=== PATIENT | female | born 1990 | race Caucasian/White ===

== ENCOUNTER 2016-08-15 05:15 | Emergency (ER) | payer MEDICAID | END 2016-08-15 06:29 | disposition home or self-care (01) | LOC: D.ER 05:15 | DX: L02.415 Cutaneous abscess of right lower limb (principal); I10 Essential (primary) hypertension ==

== ENCOUNTER 2018-01-20 11:38 | Emergency (ER) | payer MEDICAID ==
[~2018-01-20] VITALS: Ht 175.3 cm; Wt 113.6 kg
[2018-01-20 11:45] VITALS: BP 116/67; Ht 175.3 cm; Wt 113.6 kg
[2018-01-20] MEDS ORDERED: DOXYCYCLINE HY100 M2 PO (11:47)
[2018-01-20] MEDS ORDERED: ORAPRED ODT10 MG/TAB PO (11:47)
== END 2018-01-20 12:19 | disposition left against medical advice (07) ==
LOC: D.ER 11:38
DX: H57.13 Ocular pain, bilateral (principal); F17.200 Nicotine dependence, unspecified, uncomplicated

== ENCOUNTER 2018-03-27 01:13 | Emergency (ER) | payer MEDICAID ==
[~2018-03-27] VITALS: Ht 175.3 cm; Wt 113.6 kg
[~2018-03-27 01:13] MED LIST: DOXYCYCLINE HY100 M2 PO; ORAPRED ODT10 MG/TAB PO
[2018-03-27 01:16] VITALS: Ht 175.3 cm; Wt 113.6 kg
[2018-03-27 03:06] LABS: APPEARANCE HAZY (CLEAR); BACTERIA NONE SEEN /hpf (NONE SEEN); BILIRUBIN NEGATIVE (NEGATIVE); COLOR YELLOW (YELLOW); EPITHELIAL CELLS 0-5 /hpf (0-5); GLUCOSE NEGATIVE (NEGATIVE); KETONE NEGATIVE (NEGATIVE); NITRITE NEGATIVE (NEGATIVE); PROTEIN NEGATIVE (NEGATIVE); RED CELLS - URINE >50 /hpf (0-5); UROBILINOGEN NORMAL (NORMAL)
[2018-03-27] MEDS ORDERED: ZOFRAN8 MG PO (03:11)
[2018-03-27] MEDS ORDERED: TORADOL10 MG PO (03:11)
[2018-03-27] MEDS ORDERED: FLOMAX0.4 MG PO (03:11)
[2018-03-27 03:26] VITALS: BP 155/88
== END 2018-03-27 03:27 | disposition home or self-care (01) ==
LOC: D.ER 01:13
PROVIDERS: Family Medicine
DX: N20.0 Calculus of kidney (principal); I10 Essential (primary) hypertension; F17.200 Nicotine dependence, unspecified, uncomplicated

== ENCOUNTER 2018-04-22 17:47 | Emergency (ER) | payer MEDICAID ==
[~2018-04-22] VITALS: Ht 175.3 cm; Wt 113.6 kg
[~2018-04-22 17:47] MED LIST changes: +FLOMAX0.4 MG PO; +TORADOL10 MG PO; +ZOFRAN8 MG PO
[2018-04-22 18:02] VITALS: Ht 175.3 cm; Wt 113.6 kg
[2018-04-22] MEDS ORDERED: TOPROL XL25 MG PO (18:08)
[2018-04-22 20:53] LABS: ALBUMIN 3.7 g/dL (3.4-5.0); ANION GAP 10.8 mmol/L (8-16); BILIRUBIN - TOTAL 0.13 mg/dL (0.2-1.3); CALCIUM 8.5 mg/dL (8.5-10.1); CARBON DIOXIDE 27.3 mmol/L (21.0-32.0); POTASSIUM - SERUM 4.1 mmol/L (3.5-5.1); PROTEIN - SERUM 7.5 g/dL (6.4-8.2)
[2018-04-22 21:06] LABS: BASOPHILS 0.3 % (0-2); EOSINOPHILS 1.4 % (0-7); HEMATOCRIT 40.3 % (36.0-48.0); HEMOGLOBIN 13.2 g/dL (12-16); IMMATURE GRANULOCYTES 0.2 % (0-5); LYMPHOCYTES 23.7 % (15-50); MCH 27.6 pg (26.0-34.0); MCHC 32.8 g/dL (31.0-37.0); MCV 84.3 fL (80.0-100.0); MEAN PLATELET VOLUME 10.4 fL (7.4-10.4); MONOCYTES 10.7 % (2-11); NEUTROPHILS 63.7 % (40-80); PLATELET COUNT 224 10x3/uL (130-400); RBC 4.78 10x6/uL (4.00-5.40); RDW 14.1 % (11.5-14.5); WBC 10.4 10x3/uL (4.8-10.8)
[2018-04-22 21:26] LABS: APPEARANCE CLEAR (CLEAR); BILIRUBIN NEGATIVE (NEGATIVE); COLOR YELLOW (YELLOW); GLUCOSE NEGATIVE (NEGATIVE); KETONE NEGATIVE (NEGATIVE); NITRITE NEGATIVE (NEGATIVE); PROTEIN NEGATIVE (NEGATIVE); UROBILINOGEN NORMAL (NORMAL)
[2018-04-22 21:28] LABS: WHITE CELLS - URINE 0-5 /hpf (0-5)
[2018-04-22 21:29] LABS: BACTERIA MODERATE /hpf (NONE SEEN); EPITHELIAL CELLS 0-5 /hpf (0-5)
[2018-04-22] MEDS ORDERED: ZOFRAN ODT4 MG/UDTAB PO (23:12)
[2018-04-22] MEDS ORDERED: NORCO 7.5/325 T1 TA1 PO (23:12)
[2018-04-22 23:34] VITALS: BP 132/78
== END 2018-04-22 23:34 | disposition home or self-care (01) ==
LOC: D.ER 17:47
PROVIDERS: Family Medicine
DX: N20.1 Calculus of ureter (principal); Q85.1 Tuberous sclerosis; F17.200 Nicotine dependence, unspecified, uncomplicated; I10 Essential (primary) hypertension

== ENCOUNTER 2018-04-28 23:24 | Emergency (ER) | payer MEDICAID ==
[~2018-04-28] VITALS: Ht 175.3 cm; Wt 113.6 kg
[~2018-04-28 23:24] MED LIST changes: +NORCO 7.5/325 T1 TA1 PO; +TOPROL XL25 MG PO; +ZOFRAN ODT4 MG/UDTAB PO
[2018-04-28 23:28] VITALS: Ht 175.3 cm; Wt 113.6 kg
[2018-04-28 23:57] LABS: APPEARANCE CLEAR (CLEAR); BILIRUBIN NEGATIVE (NEGATIVE); COLOR YELLOW (YELLOW); GLUCOSE NEGATIVE (NEGATIVE); KETONE NEGATIVE (NEGATIVE); NITRITE NEGATIVE (NEGATIVE); PROTEIN NEGATIVE (NEGATIVE); UROBILINOGEN NORMAL (NORMAL)
[2018-04-28 23:59] LABS: HEMATOCRIT 42.9 % (36.0-48.0); LYMPHOCYTES 33.7 % (15-50); MCHC 32.6 g/dL (31.0-37.0); MCV 82.7 fL (80.0-100.0); MEAN PLATELET VOLUME 10.3 fL (7.4-10.4); NEUTROPHILS 57.7 % (40-80); PLATELET COUNT 214 10x3/uL (130-400); RBC 5.19 10x6/uL (4.00-5.40); RDW 13.6 % (11.5-14.5)
[2018-04-29 00:01] LABS: HCG SERUM NEGATIVE (NEGATIVE)
[2018-04-29 00:04] LABS: ALKALINE PHOSPHATASE 85 U/L (46-116); ALT (SGPT) 24 U/L (10-68); BILIRUBIN - TOTAL 0.26 mg/dL (0.2-1.3); CALC OSMOLALITY 283 mosm/kg (275-300); CALCIUM 9.1 mg/dL (8.5-10.1); CARBON DIOXIDE 28.7 mmol/L (21.0-32.0); CHLORIDE - SERUM 103 mmol/L (98-107); GLUCOSE 105 mg/dL (74-106); POTASSIUM - SERUM 4.2 mmol/L (3.5-5.1); PROTEIN - SERUM 8.2 g/dL (6.4-8.2); SODIUM 141 mmol/L (136-145); UREA NITROGEN 20 mg/dL (7-18); eGFR NON AFRICAN AMERICAN 69 mL/min (90-120)
[2018-04-29 00:15] LABS: CKMB 0.4 U/L (0.0-3.6); CREATINE KINASE 71 UL (21-215)
[2018-04-29 00:23] LABS: TROPONIN-I < 0.017 ng/mL (0.000-0.060)
[2018-04-29] MEDS ORDERED: NAPROSYN500 MG PO (00:57)
[2018-04-29] MEDS ORDERED: ZPAK PO (00:57)
[2018-04-29 01:19] VITALS: BP 137/90
== END 2018-04-29 01:19 | disposition home or self-care (01) ==
LOC: D.ER 23:24
PROVIDERS: Family Medicine
DX: M94.0 Chondrocostal junction syndrome [Tietze] (principal); J40 Bronchitis, not specified as acute or chronic; I10 Essential (primary) hypertension; F17.200 Nicotine dependence, unspecified, uncomplicated

== ENCOUNTER 2018-05-26 05:27 | Outpatient (CLI) | payer MEDICAID ==
[~2018-05-26] VITALS: Ht 175.3 cm; Wt 113.4 kg
[~2018-05-26 05:27] MED LIST changes: +AMOXICILLIN500 M1 PO; +GUAIFENESI100 MG/5 M PO; +HYDROCHLOROTH12.5 M1 PO; +NAPROSYN500 MG PO; +ZPAK PO
[2018-05-26 05:46] LABS: HEMATOCRIT 42.7 % (36.0-48.0); HEMOGLOBIN 14.5 g/dL (12-16); MCH 27.5 pg (26.0-34.0); MEAN PLATELET VOLUME 10.2 fL (7.4-10.4); RBC 5.27 10x6/uL (4.00-5.40); WBC 9.2 10x3/uL (4.8-10.8)
[2018-05-26] MEDS ORDERED: NORVASC10 MG PO (06:29)
[2018-05-26 06:34] VITALS: BP 144/98; Ht 175.3 cm; Wt 113.4 kg
[2018-05-26 06:34] LABS: HCG SERUM NEGATIVE (NEGATIVE)
== END 2018-05-26 09:00 | disposition home or self-care (01) ==
LOC: D.OPS 05:27 → D.PAN 07:55 → D.OPS 08:00 → D.PAN 08:00 → EDSTATUS 08:00 → D.OPS 09:00
PROVIDERS: Anesthesiology; Urology
DX: N20.1 Calculus of ureter (principal); Z53.9 Procedure and treatment not carried out, unspecified reason; Z01.812 Encounter for preprocedural laboratory examination

== ENCOUNTER 2018-05-29 11:48 | Emergency (ER) | payer MEDICAID ==
[~2018-05-29] VITALS: Ht 175.3 cm; Wt 113.6 kg
[~2018-05-29 11:48] MED LIST changes: +NORVASC10 MG PO
[2018-05-29 11:51] VITALS: Ht 175.3 cm; Wt 113.6 kg
[2018-05-29 12:13] LABS: BASOPHILS 0.3 % (0-2); EOSINOPHILS 1.1 % (0-7); HEMATOCRIT 43.7 % (36.0-48.0); HEMOGLOBIN 14.6 g/dL (12-16); IMMATURE GRANULOCYTES 0.3 % (0-5); LYMPHOCYTES 26.4 % (15-50); MCH 27.5 pg (26.0-34.0); MCHC 33.4 g/dL (31.0-37.0); MCV 82.5 fL (80.0-100.0); MEAN PLATELET VOLUME 10.1 fL (7.4-10.4); MONOCYTES 5.4 % (2-11); NEUTROPHILS 66.5 % (40-80); PLATELET COUNT 272 10x3/uL (130-400); RDW 14.1 % (11.5-14.5); WBC 11.4 10x3/uL (4.8-10.8)
[2018-05-29 12:28] LABS: ALKALINE PHOSPHATASE 77 U/L (46-116); BILIRUBIN - TOTAL 0.17 mg/dL (0.2-1.3); PROTEIN - SERUM 8.3 g/dL (6.4-8.2); SODIUM 139 mmol/L (136-145)
[2018-05-29 12:37] LABS: HCG SERUM NEGATIVE (NEGATIVE)
[2018-05-29 12:39] LABS: ALBUMIN 3.9 g/dL (3.4-5.0); ALT (SGPT) 24 U/L (10-68); AMYLASE - SERUM 33 U/L (25-115); CALCIUM 8.9 mg/dL (8.5-10.1); CHLORIDE - SERUM 103 mmol/L (98-107); CREATININE - SERUM 0.8 mg/dL (0.6-1.3); LIPASE 121 U/L (73-393); POTASSIUM - SERUM 3.4 mmol/L (3.5-5.1); UREA NITROGEN 8 mg/dL (7-18); eGFR NON AFRICAN AMERICAN 90 mL/min (90-120)
[2018-05-29 12:45] LABS: CALC OSMOLALITY 275 mosm/kg (275-300); GLUCOSE 105 mg/dL (74-106)
[2018-05-29 13:42] LABS: APPEARANCE CLOUDY (CLEAR); BILIRUBIN NEGATIVE (NEGATIVE); COLOR RED (YELLOW); GLUCOSE NEGATIVE (NEGATIVE); KETONE NEGATIVE (NEGATIVE); NITRITE NEGATIVE (NEGATIVE); PROTEIN NEGATIVE (NEGATIVE); UROBILINOGEN NORMAL (NORMAL); WHITE CELLS - URINE OCC /hpf (0-5)
[2018-05-29 13:43] LABS: EPITHELIAL CELLS 0-5 /hpf (0-5); RED CELLS - URINE 25-50 /hpf (0-5); YEAST OCC /hpf (NONE SEEN)
[2018-05-29] MEDS ORDERED: NORCO 7.5/325 T1 TA1 PO (16:16)
[2018-05-29] MEDS ORDERED: ZOFRAN ODT4 MG/UDTAB PO (16:17)
[2018-05-29] MEDS ORDERED: FLOMAX0.4 MG PO (16:17)
[2018-05-29 16:30] VITALS: BP 131/83
== END 2018-05-29 16:31 | disposition home or self-care (01) ==
LOC: D.ER 11:48
PROVIDERS: Family Medicine
DX: N23 Unspecified renal colic (principal); N13.2 Hydronephrosis with renal and ureteral calculous obstruction; R31.9 Hematuria, unspecified; I10 Essential (primary) hypertension; G40.909 Epilepsy, unspecified, not intractable, without status epilepticus

== ENCOUNTER 2018-06-14 16:39 | Emergency (ER) | payer MEDICAID ==
[~2018-06-14] VITALS: Ht 175.3 cm; Wt 127.3 kg
[2018-06-14 16:53] VITALS: Ht 175.3 cm; Wt 127.3 kg
[2018-06-14 17:22] LABS: BASOPHILS 0.2 % (0-2); EOSINOPHILS 0.6 % (0-7); HEMOGLOBIN 14.4 g/dL (12-16); IMMATURE GRANULOCYTES 0.2 % (0-5); LYMPHOCYTES 19.4 % (15-50); MCH 27.5 pg (26.0-34.0); MCHC 33.5 g/dL (31.0-37.0); MCV 82.2 fL (80.0-100.0); MEAN PLATELET VOLUME 10.2 fL (7.4-10.4); MONOCYTES 6.4 % (2-11); NEUTROPHILS 73.2 % (40-80); PLATELET COUNT 268 10x3/uL (130-400); RBC 5.23 10x6/uL (4.00-5.40); RDW 14.1 % (11.5-14.5); WBC 13.2 10x3/uL (4.8-10.8)
[2018-06-14 18:06] LABS: APPEARANCE HAZY (CLEAR); COLOR DK YELLOW (YELLOW)
[2018-06-14 18:07] LABS: BILIRUBIN NEGATIVE (NEGATIVE); GLUCOSE NEGATIVE (NEGATIVE); KETONE NEGATIVE (NEGATIVE); NITRITE POSITIVE (NEGATIVE); PROTEIN 1+ mg/dL (NEGATIVE); SPECIFIC GRAVITY 1.015 (1.005-1.020); UROBILINOGEN NORMAL (NORMAL)
[2018-06-14 18:10] LABS: RED CELLS - URINE >50 /hpf (0-5)
[2018-06-14 18:11] LABS: BACTERIA FEW /hpf (NONE SEEN); EPITHELIAL CELLS 0-5 /hpf (0-5)
[2018-06-14 18:33] LABS: ANION GAP 19.5 mmol/L (8-16); BILIRUBIN - TOTAL 0.26 mg/dL (0.2-1.3); CALCIUM 9.1 mg/dL (8.5-10.1); POTASSIUM - SERUM 3.5 mmol/L (3.5-5.1); PROTEIN - SERUM 8.4 g/dL (6.4-8.2)
[2018-06-14 20:42] VITALS: BP 137/85
== END 2018-06-14 20:44 | disposition home or self-care (01) ==
LOC: D.ER 16:39
PROVIDERS: Family Medicine
DX: G89.18 Other acute postprocedural pain (principal)

== ENCOUNTER 2019-01-01 21:41 | Emergency (ER) | payer MEDICAID ==
[~2019-01-01] VITALS: Ht 175.3 cm; Wt 113.6 kg
[2019-01-01 21:58] VITALS: Ht 175.3 cm; Wt 113.6 kg
[2019-01-01] MEDS ORDERED: TORADOL10 MG PO (22:15)
[2019-01-01] MEDS ORDERED: CLEOCIN HCL300 MG PO (22:15)
[2019-01-01 22:58] VITALS: BP 138/71
== END 2019-01-01 22:58 | disposition home or self-care (01) ==
LOC: D.ER 21:41
DX: K08.89 Other specified disorders of teeth and supporting structures (principal); K02.9 Dental caries, unspecified

== ENCOUNTER 2019-02-02 09:42 | Emergency (ER) | payer MEDICAID ==
[~2019-02-02] VITALS: Ht 175.3 cm; Wt 108.9 kg
[~2019-02-02 09:42] MED LIST changes: +CLEOCIN HCL300 MG PO
[2019-02-02 09:53] VITALS: BP 154/74; Ht 175.3 cm; Wt 108.9 kg
== END 2019-02-02 11:25 | disposition left against medical advice (07) ==
LOC: D.ER 09:42
DX: G89.18 Other acute postprocedural pain (principal)

== ENCOUNTER 2020-03-12 01:26 | Emergency (ER) | payer SELFPAY ==
[~2020-03-12] VITALS: Ht 175.3 cm; Wt 90.9 kg
[2020-03-12 01:43] VITALS: Ht 175.3 cm; Wt 90.9 kg
[2020-03-12] MEDS ORDERED: ALBUTEROL SULF8.5 GM (01:44)
[2020-03-12] MEDS ORDERED: TESSALON PERLE100 MG PO (01:44)
[2020-03-12 02:25] LABS: BASOPHILS 0.2 % (0-2); EOSINOPHILS 1.9 % (0-7); HEMATOCRIT 45.2 % (36.0-48.0); HEMOGLOBIN 14.7 g/dL (12-16); IMMATURE GRANULOCYTES 0.3 % (0-5); LYMPHOCYTES 24.1 % (15-50); MCH 27.2 pg (26.0-34.0); MCHC 32.5 g/dL (31.0-37.0); MCV 83.7 fL (80.0-100.0); MEAN PLATELET VOLUME 9.9 fL (7.4-10.4); MONOCYTES 7.8 % (2-11); NEUTROPHILS 65.7 % (40-80); PLATELET COUNT 287 10x3/uL (130-400); WBC 10.6 10x3/uL (4.8-10.8)
[2020-03-12 02:36] LABS: ANION GAP 9.9 mmol/L (8-16); CALCIUM 9.6 mg/dL (8.5-10.1); CARBON DIOXIDE 27.3 mmol/L (21.0-32.0); POTASSIUM - SERUM 4.2 mmol/L (3.5-5.1)
[2020-03-12 02:48] LABS: ALBUMIN 4.2 g/dL (3.4-5.0); BILIRUBIN - TOTAL 0.17 mg/dL (0.2-1.3)
[2020-03-12] MEDS ORDERED: TYLENOL W/CODEI1 TAB PO (03:04)
[2020-03-12] MEDS ORDERED: ALBUTEROL SULF8.5 GM INH (03:04)
[2020-03-12] MEDS ORDERED: MEDROL DOSE PACK4 MG PO (03:04)
[2020-03-12 03:50] VITALS: BP 132/87
== END 2020-03-12 03:50 | disposition home or self-care (01) ==
LOC: D.ER 01:26
PROVIDERS: Family Medicine
DX: J45.909 Unspecified asthma, uncomplicated (principal); I10 Essential (primary) hypertension; Z72.0 Tobacco use; R06.02 Shortness of breath; R07.9 Chest pain, unspecified; R05 Cough